=== PATIENT | female | born 1980 | race Caucasian/White ===

== ENCOUNTER 2022-01-12 12:05 | Emergency (ER) | payer OTHER ==
[~2022-01-12] VITALS: Ht 152.4 cm; Wt 59.0 kg
[2022-01-12] MEDS ORDERED: ATIVAN0.5 M1 PO (12:22)
[2022-01-12] MEDS ORDERED: AMITRIPTYLINE H10 MG PO (12:22)
[2022-01-12] MEDS ORDERED: RISPERDAL1 MG PO (12:22)
[2022-01-12] MEDS ORDERED: TEMAZEPAM30 MG PO (12:23)
== END 2022-01-12 18:03 | disposition home or self-care (01) ==
LOC: ER 12:05
DX: R10.9 Unspecified abdominal pain (principal)